=== PATIENT | female | born 1960 | race Caucasian/White ===

== ENCOUNTER 2022-06-04 10:49 | Inpatient (IN) | payer BC ==
[~2022-06-04] VITALS: Ht 162.6 cm; Wt 86.6 kg
[2022-06-04] MEDS ORDERED: SODIUM CHLORIDE FLUSH 10 ML SYR IV PRN (11:30)
[2022-06-04 11:42] LABS: BASOPHILS % 0.2 % (0.0-1.0); EOSINOPHILS % 0.2 % (0.0-6.0); HEMATOCRIT 23.7 % (34.2-44.1); HEMOGLOBIN 7.7 g/dL (12.0-16.0); LYMPHOCYTES # (AUTO) 1.8 (1.0-3.2); LYMPHOCYTES % 10.9 % (18.0-39.1); MEAN CORPUSCULAR HGB CONC 32.5 g/dL (31-35); MEAN CORPUSCULAR VOLUME 73.8 fL (81-99); MONOCYTES # (AUTO) 0.9 (0.2-0.8); MONOCYTES % 5.4 % (4.4-11.3); NEUTROPHILS # (AUTO) 13.3 (2.1-6.9); NEUTROPHILS % 81.6 % (38.7-80.0); PLATELET COUNT 477 x10e3/uL (140-360); RED BLOOD COUNT 3.21 x10e6/uL (3.6-5.1); RED CELL DISTRIBUTION WIDTH 19.2 % (11.7-14.4)
[2022-06-04 12:03] LABS: ALBUMIN 2.2 g/dL (3.5-5.0); ALBUMIN/GLOBULIN RATIO 0.4 (0.8-2.0); ANION GAP 28.4 mmol/L (8-16); CALCIUM 8.8 mg/dL (8.4-10.2); CREATININE, SERUM 6.83 mg/dL (0.57-1.11)
[2022-06-04 12:05] LABS: POTASSIUM 5.4 mmol/L (3.5-5.1)
[2022-06-04] MEDS ORDERED: METOPROLOL SUC200 MG PO (13:36)
[2022-06-04] MEDS ORDERED: LISINOPRIL-HCT1 EAC1 PO (13:36)
[2022-06-04] MEDS ORDERED: LEVEMIR100 UNIT/1 SQ (13:36)
[2022-06-04] MEDS ORDERED: ASPIRIN325 MG PO (13:39)
[2022-06-04] MEDS ORDERED: PANTOPRAZOLE SO20 MG PO (13:39)
[2022-06-04] MEDS ORDERED: DEXTROSE 50% SYRINGE 50 ML IV STA (15:12)
[2022-06-04] MEDS ORDERED: SODIUM BICARBONATE 8.4% INJ 50 ML SYR IV STA ×2 (15:12→20:52)
[2022-06-04] MEDS ORDERED: CALCIUM CHLORIDE 10% 1.36 MEQ/ML 10ML SYR IV STA (15:12)
[2022-06-04] MEDS ORDERED: LACTULOSE SYRUP 20 GM/30 ML UDC PO PRN (15:15)
[2022-06-04] MEDS ORDERED: SODIUM CHLORIDE 0.9% 1000ML 1,000 ML IV ONE (15:15)
[2022-06-04] MEDS ORDERED: INSULIN REGULAR, HUMAN 100 UNIT/1 ML SQ ONE (16:00)
[2022-06-04] MEDS ORDERED: FUROSEMIDE INJ 10 MG/ML 4 ML VIAL IV ONE (16:00)
[2022-06-04] MEDS ORDERED: CALCIUM CHLORIDE 10% 1.36 MEQ/ML 10ML SYR IV ONE (16:00)
[2022-06-04 16:28] LABS: CLARITY,URINE TURBID (CLEAR); COLOR,URINE STRAW (YELLOW); KETONES,URINE NEGATIVE (NEGATIVE); LEUKOCYTE ESTERASE ,URINE LARGE (NEGATIVE); NITRITE,URINE NEGATIVE (NEGATIVE); PROTEIN,URINE DIPSTICK >=300 (NEGATIVE); URINE UROBILINOGEN 0.2 mg/dL (0.2 - 1)
[2022-06-04 16:38] LABS: BACTERIA,URINE MANY /HPF
[2022-06-04] MEDS ORDERED: ATORVASTATIN CA80 MG PO (17:55)
[2022-06-04] MEDS ORDERED: OZEMPIC1 MG/0.71 SQ (17:55)
[2022-06-04] MEDS ORDERED: AMLODIPINE BESY10 MG PO (17:55)
[2022-06-04] MEDS ORDERED: CLOPIDOGREL75 MG PO (17:55)
[2022-06-04 17:56] VITALS: BP 135/59
[2022-06-04 17:58] VITALS: BP 135/59
[2022-06-04 18:12] VITALS: BP 135/55
[2022-06-04 20:00] VITALS: BP 135/55
[2022-06-04] MEDS ORDERED: SODIUM CHLORIDE 0.9% 1000ML 1,000 ML IV SCH ×2 (20:00→23:54)
[2022-06-04] MEDS ORDERED: SODIUM CHLORIDE 0.9% 1000ML 1,000 ML ONE (20:04)
[2022-06-04 20:45] VITALS: BP 125/57
[2022-06-04] MEDS ORDERED: NON-FORMULARY MEDICATION (Insulin Detemir (Levemir) 25 UNITS) SQ PRN (20:45)
[2022-06-04] MEDS: ATORVASTATIN 40 MG TAB PO SCH (21:06)
[2022-06-04] MEDS ORDERED: GEMFIBROZIL600 MG PO (21:12)
[2022-06-04] MEDS: GEMFIBROZIL 600 MG TAB PO SCH (21:46)
[2022-06-04 23:51] VITALS: BP 136/72
[2022-06-05] VITALS (7 sets, daily range): BP systolic 128–133; BP diastolic 43–65
[2022-06-05 04:58] LABS: BASOPHILS % 0.2 % (0.0-1.0); EOSINOPHILS % 0.1 % (0.0-6.0); HEMATOCRIT 21.9 % (34.2-44.1); HEMOGLOBIN 7.2 g/dL (12.0-16.0); LYMPHOCYTES # (AUTO) 0.9 (1.0-3.2); LYMPHOCYTES % 5.4 % (18.0-39.1); MEAN CORPUSCULAR HEMOGLOBIN 23.9 pg (28-32); MEAN CORPUSCULAR HGB CONC 32.9 g/dL (31-35); MEAN CORPUSCULAR VOLUME 72.8 fL (81-99); MONOCYTES # (AUTO) 1.2 (0.2-0.8); MONOCYTES % 6.8 % (4.4-11.3); NEUTROPHILS # (AUTO) 14.8 (2.1-6.9); NEUTROPHILS % 86.2 % (38.7-80.0); PLATELET COUNT 424 x10e3/uL (140-360); RED BLOOD COUNT 3.01 x10e6/uL (3.6-5.1); RED CELL DISTRIBUTION WIDTH 19.4 % (11.7-14.4)
[2022-06-05 05:19] LABS: ANION GAP 26.7 mmol/L (8-16); CALCIUM 8.3 mg/dL (8.4-10.2); CREATININE, SERUM 7.06 mg/dL (0.57-1.11); POTASSIUM 4.7 mmol/L (3.5-5.1)
[2022-06-05] MEDS: CLOPIDOGREL BISULFATE 75 MG TAB PO SCH (08:38)
[2022-06-05] MEDS: AMLODIPINE BESYLATE 10 MG TAB PO SCH (08:39)
[2022-06-05] MEDS: ASPIRIN 325 MG TAB PO SCH (08:39)
[2022-06-05] MEDS: PANTOPRAZOLE SOD 40 MG TABEC PO SCH (08:39)
[2022-06-05] MEDS ORDERED: GEMFIBROZIL 600 MG TAB PO SCH (09:00)
[2022-06-05] MEDS ORDERED: NON-FORMULARY MEDICATION (Metoprolol Succinate 1 TAB) PO SCH (09:00)
[2022-06-05] MEDS ORDERED: DEXTROSE 50% SYRINGE 50 ML IV PRN (09:15)
[2022-06-05] MEDS: INSULIN LISPRO 100 UNIT/1 ML 3ML VIAL SQ SCH ×3 (11:30→21:00)
[2022-06-05] MEDS: GEMFIBROZIL 600 MG TAB PO SCH ×2 (11:47→16:32)
[2022-06-05] MEDS ORDERED: SODIUM BICARBONATE 8.4% 150 ML in DEXTROSE 5% 1,000 ML IV ONE (15:00)
[2022-06-05] MEDS ORDERED: Vancomycin IV 1 GM in SODIUM CHLORIDE 0.9% 250ML 250 ML IV ONE ×2 (15:00→18:00)
[2022-06-05 15:20] LABS: % IRON SATURATION 8 % (15-50); IRON 20 ug/dL (50-170); TOTAL IRON BINDING CAPACITY 242 ug/dL (261-478); TRANSFERRIN 173 mg/dL (180-382)
[2022-06-05] MEDS ORDERED: HEPARIN SOD (PORCINE) 1000 UNIT/ML SDV ONE ×3 (15:55→22:24)
[2022-06-05 18:37] LABS: CLARITY,URINE SL CLOUDY (CLEAR); COLOR,URINE STRAW (YELLOW); KETONES,URINE NEGATIVE (NEGATIVE); LEUKOCYTE ESTERASE ,URINE LARGE (NEGATIVE); NITRITE,URINE NEGATIVE (NEGATIVE); PROTEIN,URINE DIPSTICK 2+ (NEGATIVE); URINE UROBILINOGEN 0.2 mg/dL (0.2 - 1)
[2022-06-05 18:46] LABS: AMORPHOUS SEDIMENT,URINE MODERATE (FEW); BACTERIA,URINE MANY /HPF; WBC,URINE (MAN) >50 /HPF (0-5)
[2022-06-05 19:31] LABS: CREATININE,URINE RANDOM 59.44 mg/dL (47-110)
[2022-06-05] MEDS ORDERED: SODIUM CHLORIDE 0.9% 1000ML 2,000 ML ONE (19:49)
[2022-06-05] MEDS ORDERED: MANNITOL 25% 12.5GM/50ML 100 ML ONE (20:13)
[2022-06-05] MEDS: ATORVASTATIN 40 MG TAB PO SCH (21:43)
[2022-06-06] VITALS (7 sets, daily range): BP systolic 97–145; BP diastolic 55–79
[2022-06-06 06:15] LABS: ALBUMIN 1.7 g/dL (3.5-5.0); ALBUMIN/GLOBULIN RATIO 0.4 (0.8-2.0); ANION GAP 24.4 mmol/L (8-16); CALCIUM 8.3 mg/dL (8.4-10.2); CREATININE, SERUM 4.81 mg/dL (0.57-1.11); POTASSIUM 4.4 mmol/L (3.5-5.1)
[2022-06-06] MEDS ORDERED: MANNITOL 25% 12.5GM/50 ML VIAL IV PRN (07:00)
[2022-06-06] MEDS ORDERED: HEPARIN SOD (PORCINE) 1000 UNIT/ML SDV IV PRN (07:00)
[2022-06-06] MEDS ORDERED: SODIUM CHLORIDE 0.9% 1000ML 2,000 ML IV PRN (07:00)
[2022-06-06] MEDS: INSULIN LISPRO 100 UNIT/1 ML 3ML VIAL SQ SCH ×5 (08:30→21:00)
[2022-06-06] MEDS: ASPIRIN 325 MG TAB PO SCH (08:33)
[2022-06-06] MEDS: CLOPIDOGREL BISULFATE 75 MG TAB PO SCH (08:34)
[2022-06-06] MEDS: AMLODIPINE BESYLATE 10 MG TAB PO SCH (08:34)
[2022-06-06] MEDS: PANTOPRAZOLE SOD 40 MG TABEC PO SCH (08:34)
[2022-06-06] MEDS: GEMFIBROZIL 600 MG TAB PO SCH ×2 (08:34→16:21)
[2022-06-06] MEDS ORDERED: SODIUM CHLORIDE 0.9% 1000ML 1,000 ML ONE (12:02)
[2022-06-06] MEDS: IRON SUCROSE 100 MG in SODIUM CHLORIDE 0.9% 100 ML IV SCH (14:52)
[2022-06-06] MEDS: SODIUM CHLORIDE 0.9% 1000ML 1,000 ML IV SCH (14:54)
[2022-06-06] MEDS: CHOLESTYRAMINE 4 GM PACKET PO SCH ×2 (16:20→22:03)
[2022-06-06] MEDS: ATORVASTATIN 40 MG TAB PO SCH (21:08)
[2022-06-06] MEDS ORDERED: CYANOCOBALAMIN INJ 1,000 MCG/ML VIAL IM ONE (23:45)
[2022-06-07] VITALS (8 sets, daily range): BP systolic 110–156; BP diastolic 51–70
[2022-06-07] MEDS: ALBUTEROL/IPRATROPIUM 3 ML NEB NEB SCH ×4 (00:40→19:25)
[2022-06-07] MEDS: SODIUM CHLORIDE 0.9% 1000ML 1,000 ML IV SCH ×2 (01:44→17:19)
[2022-06-07] MEDS: INSULIN LISPRO 100 UNIT/1 ML 3ML VIAL SQ SCH ×4 (07:30→21:13)
[2022-06-07] MEDS: CHOLESTYRAMINE 4 GM PACKET PO SCH ×3 (09:00→21:11)
[2022-06-07] MEDS: GEMFIBROZIL 600 MG TAB PO SCH ×2 (09:00→17:20)
[2022-06-07] MEDS: AMLODIPINE BESYLATE 10 MG TAB PO SCH ×2 (09:00→17:20)
[2022-06-07] MEDS: ASPIRIN 325 MG TAB PO SCH (15:01)
[2022-06-07] MEDS: PANTOPRAZOLE SOD 40 MG TABEC PO SCH (15:01)
[2022-06-07] MEDS: CLOPIDOGREL BISULFATE 75 MG TAB PO SCH (15:01)
[2022-06-07] MEDS: CYANOCOBALAMIN INJ 1,000 MCG/ML VIAL IM SCH (15:02)
[2022-06-07] MEDS: IRON SUCROSE 100 MG in SODIUM CHLORIDE 0.9% 100 ML IV SCH (15:03)
[2022-06-07] MEDS: ATORVASTATIN 40 MG TAB PO SCH (21:11)
[2022-06-08] VITALS: BP 135/53
[2022-06-08] MEDS: ALBUTEROL/IPRATROPIUM 3 ML NEB NEB SCH ×4 (00:05→19:30)
[2022-06-08 06:15] LABS: ANION GAP 15.5 mmol/L (8-16); CALCIUM 8.4 mg/dL (8.4-10.2); CREATININE, SERUM 2.5 mg/dL (0.57-1.11); POTASSIUM 3.5 mmol/L (3.5-5.1)
[2022-06-08] MEDS: SODIUM CHLORIDE 0.9% 1000ML 1,000 ML IV SCH ×2 (07:22→22:02)
[2022-06-08 07:28] VITALS: BP 143/48
[2022-06-08] MEDS: INSULIN LISPRO 100 UNIT/1 ML 3ML VIAL SQ SCH ×4 (07:30→22:00)
[2022-06-08] MEDS: PANTOPRAZOLE SOD 40 MG TABEC PO SCH (07:30)
[2022-06-08 08:29] LABS: BASOPHILS # (AUTO) 0.1 (0.0-0.1); BASOPHILS % 0.5 % (0.0-1.0); EOSINOPHILS # (AUTO) 0.3 (0.0-0.4); EOSINOPHILS % 2.1 % (0.0-6.0); LYMPHOCYTES % 15.5 % (18.0-39.1); MEAN CORPUSCULAR HEMOGLOBIN 24.1 pg (28-32); MEAN CORPUSCULAR HGB CONC 31.4 g/dL (31-35); MEAN CORPUSCULAR VOLUME 76.7 fL (81-99); MONOCYTES # (AUTO) 1.1 (0.2-0.8); MONOCYTES % 8.7 % (4.4-11.3); NEUTROPHILS # (AUTO) 9.1 (2.1-6.9); NEUTROPHILS % 70.4 % (38.7-80.0); PLATELET COUNT 290 x10e3/uL (140-360); RED BLOOD COUNT 2.66 x10e6/uL (3.6-5.1); RED CELL DISTRIBUTION WIDTH 20.4 % (11.7-14.4)
[2022-06-08 08:47] LABS: HEMATOCRIT 20.4 % (34.2-44.1); HEMOGLOBIN 6.4 g/dL (12.0-16.0)
[2022-06-08] MEDS: CHOLESTYRAMINE 4 GM PACKET PO SCH ×3 (09:00→22:02)
[2022-06-08] MEDS: GEMFIBROZIL 600 MG TAB PO SCH ×2 (09:00→17:52)
[2022-06-08] MEDS: CYANOCOBALAMIN INJ 1,000 MCG/ML VIAL IM SCH (09:00)
[2022-06-08] MEDS ORDERED: SODIUM CHLORIDE 0.9% 250ML 250 ML IV ONE (09:45)
[2022-06-08 11:28] VITALS: BP 137/57
[2022-06-08] MEDS ORDERED: PROPOFOL IV EMULSION 10 MG/ML 20 ML VIAL ONE (11:51)
[2022-06-08] MEDS ORDERED: LIDOCAINE HCL 2% LOCAL INJ 5 ML SDV VIAL INJ ONE (11:51)
[2022-06-08] MEDS ORDERED: POTASSIUM CHLORIDE 20MEQ/100ML 100 ML IV ONE (12:30)
[2022-06-08] MEDS: IRON SUCROSE 100 MG in SODIUM CHLORIDE 0.9% 100 ML IV SCH (14:00)
[2022-06-08] MEDS ORDERED: SODIUM CHLORIDE 0.9% 250ML 250 ML ONE (14:15)
[2022-06-08 15:13] LABS: ALPHA 2 GLOBULIN URINE PEP 20.3 % (.)
[2022-06-08 15:30] VITALS: BP 134/64
[2022-06-08 20:00] VITALS: BP 115/68
[2022-06-08 21:00] VITALS: BP 115/68
[2022-06-08] MEDS: ATORVASTATIN 40 MG TAB PO SCH (22:02)
[2022-06-09] VITALS (7 sets, daily range): BP systolic 117–196; BP diastolic 57–77
[2022-06-09] MEDS: ALBUTEROL/IPRATROPIUM 3 ML NEB NEB SCH ×4 (01:05→19:30)
[2022-06-09 05:41] LABS: BASOPHILS % 0.3 % (0.0-1.0); EOSINOPHILS # (AUTO) 0.4 (0.0-0.4); EOSINOPHILS % 3.1 % (0.0-6.0); HEMATOCRIT 23.3 % (34.2-44.1); HEMOGLOBIN 7.6 g/dL (12.0-16.0); LYMPHOCYTES # (AUTO) 1.9 (1.0-3.2); LYMPHOCYTES % 14.2 % (18.0-39.1); MEAN CORPUSCULAR HEMOGLOBIN 24.6 pg (28-32); MEAN CORPUSCULAR HGB CONC 32.6 g/dL (31-35); MEAN CORPUSCULAR VOLUME 75.4 fL (81-99); MONOCYTES % 7.8 % (4.4-11.3); NEUTROPHILS # (AUTO) 9.6 (2.1-6.9); PLATELET COUNT 262 x10e3/uL (140-360); RED BLOOD COUNT 3.09 x10e6/uL (3.6-5.1); RED CELL DISTRIBUTION WIDTH 18.7 % (11.7-14.4)
[2022-06-09 06:11] LABS: ALBUMIN 1.6 g/dL (3.5-5.0); ALBUMIN/GLOBULIN RATIO 0.4 (0.8-2.0); ANION GAP 14.4 mmol/L (8-16); CALCIUM 8.3 mg/dL (8.4-10.2); CREATININE, SERUM 3.57 mg/dL (0.57-1.11); POTASSIUM 3.4 mmol/L (3.5-5.1)
[2022-06-09] MEDS ORDERED: POTASSIUM CHLORIDE 20 MEQ TAB CR PO ONE (08:30)
[2022-06-09] MEDS: INSULIN LISPRO 100 UNIT/1 ML 3ML VIAL SQ SCH ×4 (08:55→21:00)
[2022-06-09] MEDS: AMLODIPINE BESYLATE 10 MG TAB PO SCH (09:01)
[2022-06-09] MEDS: PANTOPRAZOLE SOD 40 MG TABEC PO SCH (09:02)
[2022-06-09] MEDS: CHOLESTYRAMINE 4 GM PACKET PO SCH ×3 (09:02→21:25)
[2022-06-09] MEDS: GEMFIBROZIL 600 MG TAB PO SCH ×2 (09:02→16:40)
[2022-06-09] MEDS: CYANOCOBALAMIN INJ 1,000 MCG/ML VIAL IM SCH (09:02)
[2022-06-09] MEDS: SODIUM CHLORIDE 0.9% 1000ML 1,000 ML IV SCH (09:20)
[2022-06-09] MEDS: NIFEDIPINE CR 30 MG TAB PO SCH ×2 (10:23→21:23)
[2022-06-09] MEDS ORDERED: FENTANYL CITRATE/PF 100MCG/2 ML INJ ONE (12:39)
[2022-06-09] MEDS: IRON SUCROSE 100 MG in SODIUM CHLORIDE 0.9% 100 ML IV SCH (15:00)
[2022-06-09] MEDS: ATORVASTATIN 40 MG TAB PO SCH (21:22)
[2022-06-10] VITALS (7 sets, daily range): BP systolic 146–167; BP diastolic 65–89
[2022-06-10] MEDS: ALBUTEROL/IPRATROPIUM 3 ML NEB NEB SCH ×4 (00:50→18:40)
[2022-06-10] MEDS: SODIUM CHLORIDE 0.9% 1000ML 1,000 ML IV SCH ×2 (02:21→21:27)
[2022-06-10 06:15] LABS: BASOPHILS # (AUTO) 0.1 (0.0-0.1); BASOPHILS % 0.5 % (0.0-1.0); EOSINOPHILS # (AUTO) 0.4 (0.0-0.4); EOSINOPHILS % 2.1 % (0.0-6.0); HEMATOCRIT 25.3 % (34.2-44.1); HEMOGLOBIN 8.4 g/dL (12.0-16.0); LYMPHOCYTES # (AUTO) 1.8 (1.0-3.2); LYMPHOCYTES % 9.4 % (18.0-39.1); MEAN CORPUSCULAR HEMOGLOBIN 25.1 pg (28-32); MEAN CORPUSCULAR HGB CONC 33.2 g/dL (31-35); MEAN CORPUSCULAR VOLUME 75.5 fL (81-99); MONOCYTES % 5.1 % (4.4-11.3); NEUTROPHILS # (AUTO) 15.5 (2.1-6.9); NEUTROPHILS % 80.5 % (38.7-80.0); PLATELET COUNT 260 x10e3/uL (140-360); RED BLOOD COUNT 3.35 x10e6/uL (3.6-5.1); RED CELL DISTRIBUTION WIDTH 18.8 % (11.7-14.4)
[2022-06-10 06:48] LABS: ALBUMIN 1.6 g/dL (3.5-5.0); ALBUMIN/GLOBULIN RATIO 0.4 (0.8-2.0); ANION GAP 19.5 mmol/L (8-16); CALCIUM 8.3 mg/dL (8.4-10.2); CREATININE, SERUM 4.1 mg/dL (0.57-1.11); POTASSIUM 4.5 mmol/L (3.5-5.1)
[2022-06-10] MEDS: PANTOPRAZOLE SOD 40 MG TABEC PO SCH (07:30)
[2022-06-10] MEDS: INSULIN LISPRO 100 UNIT/1 ML 3ML VIAL SQ SCH ×4 (07:30→21:00)
[2022-06-10] MEDS: CYANOCOBALAMIN INJ 1,000 MCG/ML VIAL IM SCH (09:00)
[2022-06-10] MEDS ORDERED: NON-FORMULARY MEDICATION (Semaglutide (Ozempic) 1 MG) SQ SCH (09:00)
[2022-06-10] MEDS: NIFEDIPINE CR 30 MG TAB PO SCH ×2 (09:00→21:28)
[2022-06-10] MEDS: GEMFIBROZIL 600 MG TAB PO SCH (09:00)
[2022-06-10] MEDS: CHOLESTYRAMINE 4 GM PACKET PO SCH ×3 (09:00→22:53)
[2022-06-10] MEDS: IRON SUCROSE 100 MG in SODIUM CHLORIDE 0.9% 100 ML IV SCH (14:00)
[2022-06-10] MEDS ORDERED: HEPARIN SOD (PORCINE) 1000 UNIT/ML SDV IV PRN (16:00)
[2022-06-10] MEDS ORDERED: HYDRALAZINE HCL 10 MG TAB PO PRN (16:30)
[2022-06-10] MEDS: ATORVASTATIN 40 MG TAB PO SCH (21:27)
[2022-06-11] VITALS (7 sets, daily range): BP systolic 131–159; BP diastolic 48–68
[2022-06-11] MEDS: ALBUTEROL/IPRATROPIUM 3 ML NEB NEB SCH ×4 (00:30→19:25)
[2022-06-11 06:06] LABS: BASOPHILS # (AUTO) 0.1 (0.0-0.1); BASOPHILS % 0.3 % (0.0-1.0); EOSINOPHILS # (AUTO) 0.5 (0.0-0.4); EOSINOPHILS % 2.4 % (0.0-6.0); HEMATOCRIT 22.6 % (34.2-44.1); HEMOGLOBIN 7.4 g/dL (12.0-16.0); LYMPHOCYTES # (AUTO) 1.4 (1.0-3.2); LYMPHOCYTES % 7.1 % (18.0-39.1); MEAN CORPUSCULAR HEMOGLOBIN 24.7 pg (28-32); MEAN CORPUSCULAR HGB CONC 32.7 g/dL (31-35); MEAN CORPUSCULAR VOLUME 75.6 fL (81-99); MONOCYTES # (AUTO) 0.9 (0.2-0.8); MONOCYTES % 4.6 % (4.4-11.3); NEUTROPHILS # (AUTO) 16.6 (2.1-6.9); NEUTROPHILS % 83.5 % (38.7-80.0); PLATELET COUNT 241 x10e3/uL (140-360); RED BLOOD COUNT 2.99 x10e6/uL (3.6-5.1); RED CELL DISTRIBUTION WIDTH 18.8 % (11.7-14.4)
[2022-06-11] MEDS: CYANOCOBALAMIN INJ 1,000 MCG/ML VIAL IM SCH (08:52)
[2022-06-11] MEDS: PANTOPRAZOLE SOD 40 MG TABEC PO SCH (08:52)
[2022-06-11] MEDS: GEMFIBROZIL 600 MG TAB PO SCH ×3 (08:53→18:08)
[2022-06-11] MEDS: NIFEDIPINE CR 30 MG TAB PO SCH ×2 (08:53→20:41)
[2022-06-11] MEDS: CHOLESTYRAMINE 4 GM PACKET PO SCH ×3 (08:53→22:47)
[2022-06-11] MEDS: INSULIN LISPRO 100 UNIT/1 ML 3ML VIAL SQ SCH ×4 (08:55→20:46)
[2022-06-11] MEDS: ATORVASTATIN 40 MG TAB PO SCH (20:40)
[2022-06-11] MEDS: SODIUM CHLORIDE 0.9% 1000ML 1,000 ML IV SCH (20:41)
[2022-06-12] VITALS (8 sets, daily range): BP systolic 130–168; BP diastolic 54–72
[2022-06-12] MEDS: ALBUTEROL/IPRATROPIUM 3 ML NEB NEB SCH ×4 (00:40→19:23)
[2022-06-12 06:19] LABS: BASOPHILS # (AUTO) 0.1 (0.0-0.1); BASOPHILS % 0.3 % (0.0-1.0); EOSINOPHILS # (AUTO) 0.6 (0.0-0.4); HEMOGLOBIN 7.2 g/dL (12.0-16.0); LYMPHOCYTES # (AUTO) 1.9 (1.0-3.2); LYMPHOCYTES % 9.5 % (18.0-39.1); MEAN CORPUSCULAR HEMOGLOBIN 24.7 pg (28-32); MEAN CORPUSCULAR HGB CONC 31.6 g/dL (31-35); MEAN CORPUSCULAR VOLUME 78.1 fL (81-99); MONOCYTES # (AUTO) 1.1 (0.2-0.8); MONOCYTES % 5.4 % (4.4-11.3); NEUTROPHILS # (AUTO) 15.8 (2.1-6.9); NEUTROPHILS % 79.8 % (38.7-80.0); PLATELET COUNT 246 x10e3/uL (140-360); RED BLOOD COUNT 2.92 x10e6/uL (3.6-5.1); RED CELL DISTRIBUTION WIDTH 19.4 % (11.7-14.4)
[2022-06-12 06:42] LABS: ANION GAP 18.2 mmol/L (8-16); CALCIUM 8.2 mg/dL (8.4-10.2); CREATININE, SERUM 3.5 mg/dL (0.57-1.11); POTASSIUM 4.2 mmol/L (3.5-5.1)
[2022-06-12 06:50] LABS: HEMATOCRIT 22.8 % (34.2-44.1)
[2022-06-12] MEDS: INSULIN LISPRO 100 UNIT/1 ML 3ML VIAL SQ SCH ×4 (07:30→21:37)
[2022-06-12] MEDS: CHOLESTYRAMINE 4 GM PACKET PO SCH ×3 (08:39→23:02)
[2022-06-12] MEDS: NIFEDIPINE CR 30 MG TAB PO SCH ×2 (08:39→21:34)
[2022-06-12] MEDS: GEMFIBROZIL 600 MG TAB PO SCH ×2 (08:40→16:59)
[2022-06-12] MEDS: PANTOPRAZOLE SOD 40 MG TABEC PO SCH (08:40)
[2022-06-12] MEDS: CYANOCOBALAMIN INJ 1,000 MCG/ML VIAL IM SCH (08:40)
[2022-06-12] MEDS: SODIUM CHLORIDE 0.9% 1000ML 1,000 ML IV SCH (11:30)
[2022-06-12 16:06] LABS: INR 1.46; PROTHROMBIN TIME 18.9 seconds (11.9-14.5)
[2022-06-12 16:52] LABS: AMYLASE 61 U/L (25-125); LIPASE 105 U/L (8-78)
[2022-06-12] MEDS ORDERED: IOPAMIDOL 370 MG/ML 100 ML INFUS..BTL INJ ONE (19:55)
[2022-06-12] MEDS: ATORVASTATIN 40 MG TAB PO SCH (21:33)
[2022-06-13] VITALS (7 sets, daily range): BP systolic 130–161; BP diastolic 61–68
[2022-06-13] MEDS: ALBUTEROL/IPRATROPIUM 3 ML NEB NEB SCH ×4 (00:48→19:58)
[2022-06-13] MEDS: SODIUM CHLORIDE 0.9% 1000ML 1,000 ML IV SCH ×2 (01:48→16:35)
[2022-06-13 06:18] LABS: BASOPHILS # (AUTO) 0.1 (0.0-0.1); BASOPHILS % 0.3 % (0.0-1.0); EOSINOPHILS # (AUTO) 0.6 (0.0-0.4); EOSINOPHILS % 3.1 % (0.0-6.0); HEMATOCRIT 25.7 % (34.2-44.1); HEMOGLOBIN 8.1 g/dL (12.0-16.0); LYMPHOCYTES # (AUTO) 2.2 (1.0-3.2); LYMPHOCYTES % 11.6 % (18.0-39.1); MEAN CORPUSCULAR HGB CONC 31.5 g/dL (31-35); MEAN CORPUSCULAR VOLUME 79.3 fL (81-99); MONOCYTES # (AUTO) 0.8 (0.2-0.8); MONOCYTES % 4.1 % (4.4-11.3); NEUTROPHILS # (AUTO) 14.9 (2.1-6.9); NEUTROPHILS % 78.4 % (38.7-80.0); PLATELET COUNT 326 x10e3/uL (140-360); RED BLOOD COUNT 3.24 x10e6/uL (3.6-5.1); RED CELL DISTRIBUTION WIDTH 19.8 % (11.7-14.4)
[2022-06-13 06:41] LABS: ALBUMIN/GLOBULIN RATIO 0.5 (0.8-2.0); ANION GAP 21.5 mmol/L (8-16); CALCIUM 8.4 mg/dL (8.4-10.2); CREATININE, SERUM 3.66 mg/dL (0.57-1.11); POTASSIUM 4.5 mmol/L (3.5-5.1)
[2022-06-13] MEDS: INSULIN LISPRO 100 UNIT/1 ML 3ML VIAL SQ SCH ×4 (08:29→20:19)
[2022-06-13] MEDS: PANTOPRAZOLE SOD 40 MG TABEC PO SCH (08:44)
[2022-06-13] MEDS: CYANOCOBALAMIN INJ 1,000 MCG/ML VIAL IM SCH (08:44)
[2022-06-13] MEDS: GEMFIBROZIL 600 MG TAB PO SCH ×2 (08:44→17:00)
[2022-06-13] MEDS: CHOLESTYRAMINE 4 GM PACKET PO SCH ×3 (08:44→22:16)
[2022-06-13] MEDS: NIFEDIPINE CR 30 MG TAB PO SCH ×2 (08:45→20:57)
[2022-06-13] MEDS ORDERED: HEPARIN SOD (PORCINE) 1000 UNIT/ML SDV ONE (10:30)
[2022-06-13] MEDS ORDERED: FENTANYL CITRATE/PF 100MCG/2 ML INJ ONE (10:30)
[2022-06-13] MEDS ORDERED: SODIUM CHLORIDE 0.9% 250ML 250 ML ONE (10:31)
[2022-06-13] MEDS ORDERED: Clindamycin INJ 600 MG 600 MG in DEXTROSE 5% 50ML 50 ML IV ONE (11:00)
[2022-06-13] MEDS: ATORVASTATIN 40 MG TAB PO SCH (20:56)
[2022-06-14] MEDS: ALBUTEROL/IPRATROPIUM 3 ML NEB NEB SCH ×3 (01:05→12:45)
[2022-06-14 02:05] VITALS: BP 175/63
[2022-06-14 05:53] LABS: HEMOGLOBIN 7.1 g/dL (12.0-16.0); RED BLOOD COUNT 2.82 x10e6/uL (3.6-5.1)
[2022-06-14 05:54] LABS: BASOPHILS % 0.1 % (0.0-1.0); EOSINOPHILS # (AUTO) 0.5 (0.0-0.4); EOSINOPHILS % 3.8 % (0.0-6.0); HEMATOCRIT 22.1 % (34.2-44.1); LYMPHOCYTES # (AUTO) 1.6 (1.0-3.2); LYMPHOCYTES % 11.6 % (18.0-39.1); MEAN CORPUSCULAR HEMOGLOBIN 25.2 pg (28-32); MEAN CORPUSCULAR HGB CONC 32.1 g/dL (31-35); MEAN CORPUSCULAR VOLUME 78.4 fL (81-99); MONOCYTES # (AUTO) 0.9 (0.2-0.8); MONOCYTES % 6.2 % (4.4-11.3); NEUTROPHILS # (AUTO) 10.3 (2.1-6.9); NEUTROPHILS % 74.9 % (38.7-80.0); PLATELET COUNT 312 x10e3/uL (140-360)
[2022-06-14 06:06] VITALS: BP 144/68
[2022-06-14 06:23] LABS: ALBUMIN 1.9 g/dL (3.5-5.0); ALBUMIN/GLOBULIN RATIO 0.6 (0.8-2.0); ANION GAP 20.9 mmol/L (8-16); CREATININE, SERUM 2.36 mg/dL (0.57-1.11); POTASSIUM 3.9 mmol/L (3.5-5.1)
[2022-06-14] MEDS: SODIUM CHLORIDE 0.9% 1000ML 1,000 ML IV SCH (06:24)
[2022-06-14] MEDS: INSULIN LISPRO 100 UNIT/1 ML 3ML VIAL SQ SCH ×3 (07:30→16:54)
[2022-06-14 08:31] VITALS: BP 144/68
[2022-06-14 08:40] VITALS: BP 123/48
[2022-06-14] MEDS: GEMFIBROZIL 600 MG TAB PO SCH ×2 (08:56→16:57)
[2022-06-14] MEDS: CYANOCOBALAMIN INJ 1,000 MCG/ML VIAL IM SCH (08:56)
[2022-06-14] MEDS: PANTOPRAZOLE SOD 40 MG TABEC PO SCH (08:56)
[2022-06-14] MEDS: NIFEDIPINE CR 30 MG TAB PO SCH (08:59)
[2022-06-14] MEDS: CHOLESTYRAMINE 4 GM PACKET PO SCH ×2 (09:00→15:00)
[2022-06-14] MEDS ORDERED: SODIUM CHLORIDE 0.9% 250ML 250 ML IV ONE (09:30)
[2022-06-14 12:18] VITALS: BP 142/62
[2022-06-14] MEDS ORDERED: SODIUM CHLORIDE 0.9% 250ML 250 ML ONE (13:45)
[2022-06-14] MEDS ORDERED: GEMFIBROZIL600 MG PO (14:23)
[2022-06-14] MEDS ORDERED: NIFEDIPINE ER30 M1 PO (14:23)
[2022-06-14] MEDS ORDERED: CHOLESTYRAMINE L4 GM PO (14:23)
[2022-06-14] MEDS ORDERED: HYDRALAZINE HCL10 MG PO (14:23)
[2022-06-14] MEDS ORDERED: Insulin Lispro SQ (15:28)
[2022-06-14 16:35] VITALS: BP 126/52
== END 2022-06-14 18:15 | disposition home or self-care (01) | DRG 673 ==
LOC: ER 11:21 → ERHOLD 15:21 → MED/SURG2 17:39
PROVIDERS: ADMIT Internal Medicine; ATTEND Internal Medicine
PROC: 5A1D70Z Performance of Urinary Filtration, Intermittent, Less than 6 Hours Per Day (ICD-10-PCS; principal; 2022-06-05)
PROC: 02HV33Z Insertion of Infusion Device into Superior Vena Cava, Percutaneous Approach (ICD-10-PCS; 2022-06-05)
PROC: 0DB68ZZ Excision of Stomach, Via Natural or Artificial Opening Endoscopic (ICD-10-PCS; 2022-06-08)
PROC: 0DB78ZX Excision of Stomach, Pylorus, Via Natural or Artificial Opening Endoscopic, Diagnostic (ICD-10-PCS; 2022-06-08)
PROC: 30243N1 Transfusion of Nonautologous Red Blood Cells into Central Vein, Percutaneous Approach (ICD-10-PCS; 2022-06-08)
PROC: 0JH63XZ Insertion of Tunneled Vascular Access Device into Chest Subcutaneous Tissue and Fascia, Percutaneous Approach (ICD-10-PCS; 2022-06-13)
PROC: 02HV33Z Insertion of Infusion Device into Superior Vena Cava, Percutaneous Approach (ICD-10-PCS; 2022-06-13)
DX: I13.11 Hypertensive heart and chronic kidney disease without heart failure, with stage 5 chronic kidney disease, or end stage renal disease (principal); J18.9 Pneumonia, unspecified organism; N17.0 Acute kidney failure with tubular necrosis; K29.71 Gastritis, unspecified, with bleeding; N18.6 End stage renal disease; E87.2 Acidosis; N39.0 Urinary tract infection, site not specified; E11.22 Type 2 diabetes mellitus with diabetic chronic kidney disease; Z99.2 Dependence on renal dialysis; E87.5 Hyperkalemia; K31.7 Polyp of stomach and duodenum; D50.8 Other iron deficiency anemias; Z74.09 Other reduced mobility; E66.09 Other obesity due to excess calories; Z68.32 Body mass index [BMI] 32.0-32.9, adult; I69.398 Other sequelae of cerebral infarction; R26.89 Other abnormalities of gait and mobility; Z79.899 Other long term (current) drug therapy; E86.0 Dehydration; E78.5 Hyperlipidemia, unspecified; E11.69 Type 2 diabetes mellitus with other specified complication; K20.90 Esophagitis, unspecified without bleeding; D63.1 Anemia in chronic kidney disease
CPT/HCPCS: 36415; 36556; 36558; 43239; 51700; 70450; 71045; 74177; 74470; 76770; 76937; 77001; 80048; 80053; 81001; 82150; 82270; 82570; 82607; 82728; 82746; 82948; 83036; 83540; 83690; 83880; 84132; 84156; 84166; 84466; 84484; 85025; 85379; 85610; 86021; 86335; 86704; 86706; 86850; 86900; 86920; 87040; 87045; 87086; 87340; 88304; 88305; 88312; 88342; 93005; 94640; 94760; 94799; 96361; 99284; C1752; C1769; C1892; J0696; J1644; J1756; J1817; J1940; J2001; J2150; J3010; J3370; J3420; J7030; J7050; J7070; J7799; P9016; Q9967

== ENCOUNTER 2023-12-05 18:10 | Inpatient (IN) | payer BC, MEDICARE ==
[~2023-12-05] VITALS: Ht 165.1 cm; Wt 90.3 kg
[~2023-12-05 18:10] MED LIST: AMLODIPINE BESY10 MG PO; ASPIRIN325 MG PO; ATORVASTATIN CA80 MG PO; CHOLESTYRAMINE L4 GM PO; CLOPIDOGREL75 MG PO; GEMFIBROZIL600 MG PO; HYDRALAZINE HCL10 MG PO; Insulin Lispro SQ; LEVEMIR100 UNIT/1 SQ; LISINOPRIL-HCT1 EAC1 PO; METOPROLOL SUC200 MG PO; NIFEDIPINE ER30 M1 PO; OZEMPIC1 MG/0.71 SQ; PANTOPRAZOLE SO20 MG PO
[2023-12-05 18:50] LABS: BASOPHILS % 0.4 % (0.0-1.0); EOSINOPHILS # (AUTO) 0.2 (0.0-0.4); EOSINOPHILS % 1.6 % (0.0-6.0); HEMATOCRIT 30.4 % (34.2-44.1); HEMOGLOBIN 9.4 g/dL (12.0-16.0); LYMPHOCYTES # (AUTO) 1.6 (1.0-3.2); LYMPHOCYTES % 16.4 % (18.0-39.1); MEAN CORPUSCULAR HEMOGLOBIN 30.4 pg (28-32); MEAN CORPUSCULAR HGB CONC 30.9 g/dL (31-35); MEAN CORPUSCULAR VOLUME 98.4 fL (81-99); MONOCYTES # (AUTO) 0.7 (0.2-0.8); MONOCYTES % 6.9 % (4.4-11.3); NEUTROPHILS # (AUTO) 7.2 (2.1-6.9); PLATELET COUNT 333 x10e3/uL (140-360); RED BLOOD COUNT 3.09 x10e6/uL (3.6-5.1); RED CELL DISTRIBUTION WIDTH 14.5 % (11.7-14.4); WHITE BLOOD COUNT 9.77 x10e3/uL (4.8-10.8)
[2023-12-05 19:00] LABS: INR 1.23; PROTHROMBIN TIME 15.8 seconds (11.9-14.5)
[2023-12-05 19:01] LABS: PARTIAL THROMBOPLASTIN TIME 36.3 seconds (23.8-35.5)
[2023-12-05 19:09] LABS: ALBUMIN 3.3 g/dL (3.5-5.0); ALBUMIN/GLOBULIN RATIO 0.8 (0.8-2.0); ANION GAP 20.9 mmol/L (8-16); BILIRUBIN,TOTAL 0.3 mg/dL (0.2-1.2); CREATININE, SERUM 3.29 mg/dL (0.57-1.11); POTASSIUM 3.9 mmol/L (3.5-5.1); TOTAL PROTEIN 7.6 g/dL (6.5-8.1)
[2023-12-05 19:12] LABS: CALCIUM 5.4 mg/dL (8.4-10.2)
[2023-12-05 19:16] LABS: TROPONIN I 0.043 ng/mL (0-0.300)
[2023-12-05] MEDS: CALCIUM GLUC 1 G/50 ML NACL 150 ML IV ONE (20:24)
[2023-12-05] MEDS: SODIUM CHLORIDE 0.9% 500ML 300 ML IV STA (20:27)
[2023-12-05 22:30] VITALS: BP 174/69; PULSE 92; RESP 18; TEMP 97.8; O2SAT 94
[2023-12-05 22:34] VITALS: PULSE 85; RESP 16; RESP 24; O2SAT 94; O2SAT 98
[2023-12-05] MEDS ORDERED: FUROSEMIDE40 MG PO (22:51)
[2023-12-05] MEDS ORDERED: LASIX20 MG PO (22:51)
[2023-12-05] MEDS ORDERED: SODIUM BICARBO650 MG PO (22:51)
[2023-12-05] MEDS ORDERED: FEROSUL325 MG PO (22:51)
[2023-12-06] VITALS (52 sets, daily range): BP systolic 88–193; BP diastolic 58–178; PULSE 88–107; RESP 16–35; TEMP 97.5–98.4; O2SAT 93–100
[2023-12-06] MEDS ORDERED: ONDANSETRON HCL INJ 2MG/ML 2ML 2 MG/ML VIAL IV PRN (00:45)
[2023-12-06] MEDS ORDERED: DEXTROSE 50% SYRINGE 50 ML IV PRN (00:45)
[2023-12-06] MEDS ORDERED: MELATONIN 3 MG TAB PO PRN (00:45)
[2023-12-06] MEDS ORDERED: GUAIFENESIN/DEXTROMETHORPHAN LIQD 5 ML UDC PO PRN (00:45)
[2023-12-06] MEDS: FUROSEMIDE INJ 10 MG/ML 4 ML VIAL IV ONE (00:52)
[2023-12-06] MEDS: IPRATROPIUM BROMIDE 0.02% 2.5 ML NEB NEB SCH (00:57)
[2023-12-06] MEDS: ALBUTEROL SULF 0.083% NEB SOLN 3 ML NEB NEB PRN (00:58)
[2023-12-06] MEDS: Vancomycin IV 1 GM in SODIUM CHLORIDE 0.9% 250ML 250 ML IV ONE ×2 (01:22→12:51)
[2023-12-06 01:49] LABS: ABG PCO2 20 mmHg (35-45); ABG PH 7.41 (7.35-7.45)
[2023-12-06 01:50] LABS: ABG HCO3 13 mmol/L (22-26); ABG PO2 46 mmHg (80-105); ABG TCO2 13
[2023-12-06] MEDS: NIFEDIPINE CR 30 MG TAB PO ONE (01:53)
[2023-12-06] MEDS ORDERED: IPRATROPIUM BROMIDE 0.02% 2.5 ML NEB NEB SCH (03:00)
[2023-12-06] MEDS: SODIUM BICARBONATE 8.4% INJ 50 ML SYR IV STA (03:09)
[2023-12-06] MEDS: LACTATED RINGER'S 400 ML IV ONE (03:09)
[2023-12-06] MEDS: CALCIUM GLUC 1 G/50 ML NACL 50 ML IV ONE ×2 (03:09→12:50)
[2023-12-06] MEDS: HYDRALAZINE HCL 20 MG/ML VIAL IV PRN (03:23)
[2023-12-06] MEDS: NIFEDIPINE CR 30 MG TAB PO SCH (03:53)
[2023-12-06 06:27] LABS: BASOPHILS % 0.1 % (0.0-1.0); EOSINOPHILS % 0.2 % (0.0-6.0); HEMATOCRIT 28.3 % (34.2-44.1); HEMOGLOBIN 9.4 g/dL (12.0-16.0); LYMPHOCYTES # (AUTO) 0.8 (1.0-3.2); LYMPHOCYTES % 7.5 % (18.0-39.1); MEAN CORPUSCULAR HEMOGLOBIN 31.3 pg (28-32); MEAN CORPUSCULAR HGB CONC 33.2 g/dL (31-35); MEAN CORPUSCULAR VOLUME 94.3 fL (81-99); MONOCYTES # (AUTO) 0.4 (0.2-0.8); MONOCYTES % 4.1 % (4.4-11.3); NEUTROPHILS # (AUTO) 8.9 (2.1-6.9); NEUTROPHILS % 87.4 % (38.7-80.0); PLATELET COUNT 312 x10e3/uL (140-360); RED CELL DISTRIBUTION WIDTH 14.5 % (11.7-14.4); WHITE BLOOD COUNT 10.18 x10e3/uL (4.8-10.8)
[2023-12-06 06:42] LABS: ANION GAP 21.7 mmol/L (8-16); CREATININE, SERUM 3.17 mg/dL (0.57-1.11); POTASSIUM 3.7 mmol/L (3.5-5.1)
[2023-12-06 06:49] LABS: CALCIUM 6.1 mg/dL (8.4-10.2)
[2023-12-06 07:25] LABS: THYROID STIMULATING HORMONE 2.107 uIU/mL (0.350-4.940)
[2023-12-06] MEDS: INSULIN REGULAR, HUMAN 100 UNIT/1 ML SQ SCH (07:30)
[2023-12-06] MEDS: ASPIRIN 325 MG TAB PO SCH (08:14)
[2023-12-06] MEDS: CLOPIDOGREL BISULFATE 75 MG TAB PO SCH (08:14)
[2023-12-06] MEDS: SODIUM BICARBONATE 650 MG TAB PO SCH (08:14)
[2023-12-06] MEDS: FOLIC ACID/CYANOCOB/PYRIDOXINE TAB PO SCH (08:14)
[2023-12-06] MEDS: BUMETANIDE INJ 0.25MG/ML 4ML VIAL IV SCH (12:50)
[2023-12-06] MEDS: SODIUM BICARBONATE 8.4% 150 ML in DEXTROSE 5% 1,000 ML IV SCH (12:57)
[2023-12-06 14:46] LABS: BILIRUBIN,URINE NEGATIVE (NEGATIVE); CLARITY,URINE HAZY (CLEAR); COLOR,URINE YELLOW (YELLOW); GLUCOSE, URINE 1+ (NEGATIVE); KETONES,URINE NEGATIVE (NEGATIVE); LEUKOCYTE ESTERASE ,URINE MODERATE (NEGATIVE); NITRITE,URINE POSITIVE (NEGATIVE); PH,URINE 6.5 (5 - 7); PROTEIN,URINE DIPSTICK >=300 (NEGATIVE); URINE UROBILINOGEN 0.2 mg/dL (0.2 - 1)
[2023-12-06 15:01] LABS: BACTERIA,URINE MODERATE /HPF; EPITHELIAL CELLS,URINE FEW /LPF; WBC,URINE (MAN) 21-50 /HPF (0-5)
[2023-12-06 15:06] LABS: FREE T4 (FREE THYROXINE) 1.03 ng/dL (0.8-1.8); THYROID STIMULATING HORMONE 1.649 uIU/mL (0.350-4.940)
[2023-12-06] MEDS: INSULIN REGULAR, HUMAN 3ML VL 100 UNIT in SODIUM CHLORIDE 0.9% 100 ML IV SCH (15:10)
[2023-12-06] MEDS: ATORVASTATIN 40 MG TAB PO SCH (20:39)
[2023-12-06] MEDS: HEPARIN SOD (PORCINE) 5,000 UNIT/ML VIAL SC SCH (20:40)
[2023-12-07] VITALS (33 sets, daily range): BP systolic 97–190; BP diastolic 52–129; PULSE 59–99; RESP 15–26; TEMP 98.2–98.5; O2SAT 95–100
[2023-12-07 06:50] LABS: ALBUMIN 2.7 g/dL (3.5-5.0); ALBUMIN/GLOBULIN RATIO 0.8 (0.8-2.0); ANION GAP 20.3 mmol/L (8-16); BILIRUBIN,TOTAL 0.5 mg/dL (0.2-1.2); CREATININE, SERUM 3.44 mg/dL (0.57-1.11); TOTAL PROTEIN 6.3 g/dL (6.5-8.1)
[2023-12-07 07:01] LABS: CALCIUM 5.3 mg/dL (8.4-10.2); POTASSIUM 3.3 mmol/L (3.5-5.1)
[2023-12-07] MEDS: POTASSIUM CHLORIDE 20MEQ/100ML 100 ML IV ONE (08:15)
[2023-12-07] MEDS: CALCIUM GLUC 1 G/50 ML NACL 50 ML IV ONE (08:15)
[2023-12-07 08:48] LABS: ABG PH 7.46 (7.35-7.45)
[2023-12-07 08:49] LABS: ABG HCO3 19 mmol/L (22-26); ABG PCO2 26 mmHg (35-45); ABG PO2 98 mmHg (80-105); ABG TCO2 20
[2023-12-07] MEDS: BUMETANIDE INJ 0.25MG/ML 4ML VIAL IV SCH (12:07)
[2023-12-07] MEDS: CALCITRIOL 0.25 MCG CAP PO SCH (12:07)
[2023-12-07 12:10] LABS: CALCIUM 5.6 mg/dL (8.7-10.3)
[2023-12-07] MEDS: CALCIUM CARBONATE 500 MG CHEWABLE TABS PO SCH (15:13)
[2023-12-07] MEDS: CALCIUM GLUCONATE 10% INJ 9.3 MEQ in SODIUM CHLORIDE 0.9% 250ML 250 ML IV ONE (15:34)
[2023-12-08] VITALS (33 sets, daily range): BP systolic 96–146; BP diastolic 48–126; PULSE 70–105; RESP 15–24; TEMP 98–98.5; O2SAT 93–100
[2023-12-08] MEDS: DEXTROSE 50% SYRINGE 50 ML IV PRN (01:26)
[2023-12-08 06:35] LABS: BASOPHILS % 0.1 % (0.0-1.0); EOSINOPHILS # (AUTO) 0.5 (0.0-0.4); EOSINOPHILS % 4.7 % (0.0-6.0); HEMATOCRIT 27.5 % (34.2-44.1); HEMOGLOBIN 8.7 g/dL (12.0-16.0); LYMPHOCYTES # (AUTO) 0.4 (1.0-3.2); LYMPHOCYTES % 3.9 % (18.0-39.1); MEAN CORPUSCULAR HEMOGLOBIN 30.6 pg (28-32); MEAN CORPUSCULAR HGB CONC 31.6 g/dL (31-35); MEAN CORPUSCULAR VOLUME 96.8 fL (81-99); MONOCYTES # (AUTO) 0.2 (0.2-0.8); MONOCYTES % 2.2 % (4.4-11.3); NEUTROPHILS # (AUTO) 8.9 (2.1-6.9); NEUTROPHILS % 88.6 % (38.7-80.0); PLATELET COUNT 304 x10e3/uL (140-360); RED BLOOD COUNT 2.84 x10e6/uL (3.6-5.1); RED CELL DISTRIBUTION WIDTH 14.4 % (11.7-14.4); WHITE BLOOD COUNT 10.01 x10e3/uL (4.8-10.8)
[2023-12-08 07:00] LABS: ALBUMIN 2.6 g/dL (3.5-5.0); ALBUMIN/GLOBULIN RATIO 0.7 (0.8-2.0); ANION GAP 22.4 mmol/L (8-16); BILIRUBIN,TOTAL 0.5 mg/dL (0.2-1.2); CREATININE, SERUM 3.61 mg/dL (0.57-1.11); TOTAL PROTEIN 6.3 g/dL (6.5-8.1)
[2023-12-08 07:09] LABS: POTASSIUM 3.4 mmol/L (3.5-5.1)
[2023-12-08 07:10] LABS: CALCIUM 5.7 mg/dL (8.4-10.2)
[2023-12-08 07:25] LABS: FERRITIN 424.45 ng/mL (4.63-204.00)
[2023-12-08] MEDS ORDERED: CALCIUM GLUC 1 G/50 ML NACL 50 ML IV ONE (07:45)
[2023-12-08] MEDS: CEFTRIAXONE 2 GM in SODIUM CHLORIDE 0.9% 100 ML IV SCH (08:24)
[2023-12-08] MEDS: CALCIUM CARBONATE 500 MG CHEWABLE TABS PO SCH (08:25)
[2023-12-08] MEDS: FERROUS SULFATE 325 MG TAB PO SCH (08:25)
[2023-12-08] MEDS: CYANOCOBALAMIN 1,000 MCG TAB PO SCH (08:26)
[2023-12-08] MEDS: CALCIUM GLUC 1 G/50 ML NACL 100 ML IV ONE (08:29)
[2023-12-08] MEDS: POTASSIUM CHLORIDE 20MEQ/100ML 100 ML IV ONE (08:30)
[2023-12-08] MEDS: CALCIUM GLUC 1 G/50 ML NACL 50 ML IV ONE ×2 (16:16→17:52)
[2023-12-08] MEDS: CARVEDILOL 12.5 MG TAB PO SCH (16:18)
[2023-12-08 16:50] LABS: CALCIUM IONIZED 0.6 mmol/L (1.09-1.30)
[2023-12-08 17:20] LABS: ANION GAP 22.8 mmol/L (8-16); CREATININE, SERUM 3.56 mg/dL (0.57-1.11); POTASSIUM 3.8 mmol/L (3.5-5.1)
[2023-12-08 17:24] LABS: CALCIUM 5.5 mg/dL (8.4-10.2)
[2023-12-08 17:46] LABS: MAGNESIUM 1.5 MG/DL (1.3-2.1)
[2023-12-08] MEDS: MAGNESIUM SULFATE 2GM/50ML 50 ML IV ONE (18:23)
[2023-12-08] MEDS: CALCIUM GLUCONATE 10% INJ 9.3 MEQ in SODIUM CHLORIDE 0.9% 250ML 250 ML IV SCH (19:31)
[2023-12-08] MEDS: OYST-CAL-D 500MG TABLET PO SCH (21:11)
[2023-12-09] VITALS (31 sets, daily range): BP systolic 113–166; BP diastolic 53–112; PULSE 70–99; RESP 11–22; TEMP 98–98.4; O2SAT 91–100
[2023-12-09 06:49] LABS: ANION GAP 21.6 mmol/L (8-16); CREATININE, SERUM 3.57 mg/dL (0.57-1.11); POTASSIUM 3.6 mmol/L (3.5-5.1)
[2023-12-09 07:00] LABS: CALCIUM 6.7 mg/dL (8.4-10.2)
[2023-12-09 07:32] LABS: CALCIUM IONIZED 0.8 mmol/L (1.09-1.30)
[2023-12-09] MEDS: ASPIRIN 81 MG ENTERIC COATED PO SCH (08:18)
[2023-12-09] MEDS ORDERED: CALCITRIOL 0.5 MCG CAP PO SCH (09:00)
[2023-12-09] MEDS: CALCIUM GLUCONATE IV SCH (09:42)
[2023-12-09] MEDS: SODIUM CHLORIDE 0.9% IV SCH (09:42)
[2023-12-09] MEDS: CALCITRIOL 0.25 MCG CAP PO SCH (11:17)
[2023-12-09] MEDS: ACETAMINOPHEN 325 MG TAB PO PRN (12:46)
[2023-12-09] MEDS: CALCIUM CARBONATE 500 MG CHEWABLE TABS PO SCH (16:35)
[2023-12-09] MEDS: CARVEDILOL 12.5 MG TAB PO SCH (16:35)
[2023-12-10] VITALS (27 sets, daily range): BP systolic 105–169; BP diastolic 46–108; PULSE 72–92; RESP 4–24; TEMP 97.6–98.2; O2SAT 93–100
[2023-12-10 07:14] LABS: ANION GAP 18.2 mmol/L (8-16); CREATININE, SERUM 3.65 mg/dL (0.57-1.11)
[2023-12-10 07:16] LABS: POTASSIUM 3.2 mmol/L (3.5-5.1)
[2023-12-10 07:48] LABS: CALCIUM IONIZED 1.2 mmol/L (1.09-1.30)
[2023-12-10] MEDS: DOCUSATE SODIUM 100 MG CAP PO PRN (08:52)
[2023-12-10] MEDS ORDERED: SODIUM CHLORIDE 0.9% IV SCH (09:30)
[2023-12-10] MEDS ORDERED: CALCIUM GLUCONATE IV SCH (09:30)
[2023-12-10] MEDS: POTASSIUM CHLORIDE 20MEQ/100ML 100 ML IV SCH (11:05)
[2023-12-10] MEDS: CALCIUM GLUCONATE 10% INJ 9.3 MEQ in SODIUM CHLORIDE 0.9% 250ML 250 ML IV SCH (11:05)
[2023-12-10] MEDS: BUMETANIDE INJ 0.25MG/ML 4ML VIAL IV SCH (14:00)
[2023-12-10] MEDS: SODIUM BICARBONATE 650 MG TAB PO SCH (15:12)
[2023-12-11] VITALS (23 sets, daily range): BP systolic 98–194; BP diastolic 33–74; PULSE 67–94; RESP 0–18; TEMP 97.2–98.5; O2SAT 94–100
[2023-12-11 06:58] LABS: ALBUMIN 2.5 g/dL (3.5-5.0); ALBUMIN/GLOBULIN RATIO 0.7 (0.8-2.0); ANION GAP 18.7 mmol/L (8-16); BILIRUBIN,TOTAL 0.2 mg/dL (0.2-1.2); CALCIUM 10.5 mg/dL (8.4-10.2); CREATININE, SERUM 3.67 mg/dL (0.57-1.11); POTASSIUM 3.7 mmol/L (3.5-5.1); TOTAL PROTEIN 5.9 g/dL (6.5-8.1)
[2023-12-11 10:11] LABS: CREATININE,URINE RANDOM 40.98 mg/dL (47-110)
[2023-12-11] MEDS: METOLAZONE 5 MG TAB PO ONE (13:07)
[2023-12-11 13:17] LABS: HEPATITIS B CORE AB TOTAL NEGATIVE; HEPATITIS B SURFACE AG (P) NEGATIVE
[2023-12-11] MEDS ORDERED: DEXTROSE 50% SYRINGE 50 ML IV PRN (16:00)
[2023-12-11] MEDS: INSULIN LISPRO 100 UNIT/1 ML 3ML VIAL SQ SCH (16:36)
[2023-12-12] VITALS (25 sets, daily range): BP systolic 118–181; BP diastolic 28–127; PULSE 67–86; RESP 3–24; TEMP 97.6–98.6; O2SAT 94–100
[2023-12-12 07:45] LABS: BASOPHILS % 0.2 % (0.0-1.0); EOSINOPHILS # (AUTO) 0.9 (0.0-0.4); EOSINOPHILS % 8.3 % (0.0-6.0); HEMATOCRIT 26.5 % (34.2-44.1); HEMOGLOBIN 8.6 g/dL (12.0-16.0); LYMPHOCYTES % 19.4 % (18.0-39.1); MEAN CORPUSCULAR HEMOGLOBIN 31.2 pg (28-32); MEAN CORPUSCULAR HGB CONC 32.5 g/dL (31-35); MONOCYTES # (AUTO) 0.5 (0.2-0.8); NEUTROPHILS # (AUTO) 6.7 (2.1-6.9); PLATELET COUNT 296 x10e3/uL (140-360); RED BLOOD COUNT 2.76 x10e6/uL (3.6-5.1); RED CELL DISTRIBUTION WIDTH 13.8 % (11.7-14.4); WHITE BLOOD COUNT 10.34 x10e3/uL (4.8-10.8)
[2023-12-12 07:54] LABS: ANION GAP 19.8 mmol/L (8-16); CALCIUM 10.4 mg/dL (8.4-10.2); CREATININE, SERUM 3.84 mg/dL (0.57-1.11); POTASSIUM 3.8 mmol/L (3.5-5.1)
[2023-12-12 10:04] LABS: EOSINOPHILS % (MANUAL) 9 % (0-7); LYMPHOCYTES % (MANUAL) 13 % (19-48); MONOCYTES % (MANUAL) 7 % (3.4-9.0); NEUTROPHILS % (MANUAL) 71 % (40-74)
[2023-12-12 10:08] LABS: PLATELET ESTIMATE ADEQUATE; PLATELET MORPHOLOGY COMMENT NORMAL; RBC MORPHOLOGY COMMENT NORMAL
[2023-12-12] MEDS: VANCOMYCIN 250MG/5ML ORAL SOLN PO SCH (15:06)
[2023-12-12] MEDS: CARVEDILOL 12.5 MG TAB PO SCH (17:05)
[2023-12-12] MEDS: BUMETANIDE 1 MG TAB PO SCH (17:05)
[2023-12-12] MEDS: HEPARIN SOD (PORCINE) 5,000 UNIT/ML VIAL SC SCH (20:13)
[2023-12-13] VITALS (20 sets, daily range): BP systolic 93–155; BP diastolic 31–91; PULSE 68–87; RESP 4–24; TEMP 97.5–98.6; O2SAT 90–100
[2023-12-13] MEDS: INSULIN GLARGINE 100 UNITS/ML VIAL SQ SCH (09:51)
[2023-12-13] MEDS: BUMETANIDE 1 MG TAB PO SCH (11:30)
[2023-12-14] VITALS (10 sets, daily range): BP systolic 131–161; BP diastolic 49–91; PULSE 68–124; RESP 14–18; TEMP 97.6–98; O2SAT 92–100
[2023-12-14] MEDS: METOPROLOL TARTRATE INJ 1 MG/ML VIAL IV ONE (03:59)
[2023-12-14 06:36] LABS: ALBUMIN 2.4 g/dL (3.5-5.0); ALBUMIN/GLOBULIN RATIO 0.8 (0.8-2.0); ANION GAP 18.4 mmol/L (8-16); BILIRUBIN,TOTAL 0.2 mg/dL (0.2-1.2); CALCIUM 7.8 mg/dL (8.4-10.2); CREATININE, SERUM 4.28 mg/dL (0.57-1.11); TOTAL PROTEIN 5.5 g/dL (6.5-8.1)
[2023-12-14 06:37] LABS: POTASSIUM 3.4 mmol/L (3.5-5.1)
[2023-12-14] MEDS ORDERED: BUMETANIDE 1 MG TAB PO SCH (09:00)
[2023-12-14] MEDS ORDERED: VANCOCIN HCL250 MG PO (11:25)
[2023-12-14] MEDS ORDERED: SODIUM BICARBO650 MG PO (11:25)
[2023-12-14] MEDS ORDERED: NEPHRO-VITE TABL1 EA PO (11:25)
[2023-12-14] MEDS ORDERED: COREG12.5 MG PO (11:25)
[2023-12-14] MEDS: POTASSIUM CHLORIDE 20 MEQ TAB CR PO ONE (12:05)
[2023-12-14] MEDS ORDERED: LASIX20 MG PO (13:00)
[2023-12-14] MEDS ORDERED: GEMFIBROZIL 600 MG TAB PO SCH (16:30)
[2023-12-14] MEDS ORDERED: HYDRALAZINE HCL 10 MG TAB PO PRN (16:45)
[2023-12-14] MEDS ORDERED: CHOLESTYRAMINE 4 GM PACKET PO SCH (22:00)
[2023-12-14] MEDS ORDERED: HYDRALAZINE HCL 10 MG TAB PO SCH (22:00)
[2023-12-15] MEDS ORDERED: PANTOPRAZOLE SOD 40 MG TABEC PO SCH (07:30)
[2023-12-15] MEDS ORDERED: FUROSEMIDE 20 MG TAB PO SCH (09:00)
[2023-12-15] MEDS ORDERED: ASPIRIN 325 MG TAB EC PO SCH (09:00)
== END 2023-12-14 16:45 | DRG 871 ==
LOC: ER 18:31 → ERHOLD 20:05 → MED/SURG3 21:45 → ICU 12-06 01:38 → OBSVTOIN 12-06 08:39
PROVIDERS: ADMIT Internal Medicine; ATTEND Internal Medicine
PROC: 4A043R1 Measurement of Venous Saturation, Peripheral, Percutaneous Approach (ICD-10-PCS; principal; 2023-12-06)
PROC: 5A09357 Assistance with Respiratory Ventilation, Less than 24 Consecutive Hours, Continuous Positive Airway Pressure (ICD-10-PCS; 2023-12-06)
PROC: 05HM33Z Insertion of Infusion Device into Right Internal Jugular Vein, Percutaneous Approach (ICD-10-PCS; 2023-12-09)
DX: A41.9 Sepsis, unspecified organism (principal); E11.10 Type 2 diabetes mellitus with ketoacidosis without coma; J18.9 Pneumonia, unspecified organism; J96.01 Acute respiratory failure with hypoxia; G93.41 Metabolic encephalopathy; I50.23 Acute on chronic systolic (congestive) heart failure; I13.0 Hypertensive heart and chronic kidney disease with heart failure and stage 1 through stage 4 chronic kidney disease, or unspecified chronic kidney disease; N39.0 Urinary tract infection, site not specified; G91.1 Obstructive hydrocephalus; N17.9 Acute kidney failure, unspecified; E87.3 Alkalosis; E11.42 Type 2 diabetes mellitus with diabetic polyneuropathy; R65.20 Severe sepsis without septic shock; N18.32 Chronic kidney disease, stage 3b; E11.22 Type 2 diabetes mellitus with diabetic chronic kidney disease; E83.51 Hypocalcemia; E11.51 Type 2 diabetes mellitus with diabetic peripheral angiopathy without gangrene; Z71.3 Dietary counseling and surveillance; Z68.33 Body mass index [BMI] 33.0-33.9, adult; R55 Syncope and collapse; I65.23 Occlusion and stenosis of bilateral carotid arteries; E66.9 Obesity, unspecified; E87.6 Hypokalemia; R19.7 Diarrhea, unspecified; I48.0 Paroxysmal atrial fibrillation; R53.81 Other malaise; K21.9 Gastro-esophageal reflux disease without esophagitis; I34.0 Nonrheumatic mitral (valve) insufficiency; E78.00 Pure hypercholesterolemia, unspecified; Z98.2 Presence of cerebrospinal fluid drainage device; Z86.73 Personal history of transient ischemic attack (TIA), and cerebral infarction without residual deficits; Z11.52 Encounter for screening for COVID-19; Z79.899 Other long term (current) drug therapy; Z79.82 Long term (current) use of aspirin; Z79.02 Long term (current) use of antithrombotics/antiplatelets
CPT/HCPCS: 36415; 36600; 70450; 71045; 71250; 74176; 76770; 80048; 80053; 81001; 82140; 82550; 82575; 82607; 82728; 82805; 82948; 83036; 83540; 83605; 83735; 83880; 83970; 84100; 84439; 84443; 84466; 84484; 84550; 85025; 85610; 85730; 86704; 86705; 86706; 87040; 87086; 87340; 87400; 87449; 92523; 93005; 93306; 93971; 94640; 94660; 94799; 96372; 99252; 99284; G0378; J0360; J0612; J0692; J0696; J1644; J1815; J1940; J3475; J3480; J7040; J7050; J7070; J7799; U0002

== ENCOUNTER 2024-06-10 09:06 | Inpatient (IN) | payer MEDICARE ==
[~2024-06-10] VITALS: Ht 152.4 cm; Wt 80.8 kg
[~2024-06-10 09:06] MED LIST changes: +COREG12.5 MG PO; +FEROSUL325 MG PO; +FUROSEMIDE40 MG PO; +LASIX20 MG PO; +NEPHRO-VITE TABL1 EA PO; +SODIUM BICARBO650 MG PO; +VANCOCIN HCL250 MG PO
[2024-06-10 09:14] VITALS: TEMP 97.7
[2024-06-10] MEDS: SODIUM CHLORIDE 0.9% 500ML 500 ML IV ONE ×2 (09:55→12:26)
[2024-06-10 09:56] LABS: BASOPHILS % 0.3 % (0.0-1.0); EOSINOPHILS # (AUTO) 0.3 (0.0-0.4); EOSINOPHILS % 2.5 % (0.0-6.0); HEMATOCRIT 34.3 % (34.2-44.1); HEMOGLOBIN 11.2 g/dL (12.0-16.0); LYMPHOCYTES # (AUTO) 2.9 (1.0-3.2); LYMPHOCYTES % 21.8 % (18.0-39.1); MEAN CORPUSCULAR HGB CONC 32.7 g/dL (31-35); MONOCYTES # (AUTO) 1.2 (0.2-0.8); MONOCYTES % 9.4 % (4.4-11.3); NEUTROPHILS # (AUTO) 8.5 (2.1-6.9); NEUTROPHILS % 65.2 % (38.7-80.0); PLATELET COUNT 243 x10e3/uL (140-360); RED BLOOD COUNT 3.61 x10e6/uL (3.6-5.1); RED CELL DISTRIBUTION WIDTH 13.7 % (11.7-14.4); WHITE BLOOD COUNT 13.09 x10e3/uL (4.8-10.8)
[2024-06-10 10:06] LABS: CLARITY,URINE SL CLOUDY (CLEAR); COLOR,URINE YELLOW (YELLOW); GLUCOSE, URINE NEGATIVE (NEGATIVE); KETONES,URINE NEGATIVE (NEGATIVE); LEUKOCYTE ESTERASE ,URINE SMALL (NEGATIVE); NITRITE,URINE NEGATIVE (NEGATIVE); PH,URINE 7.5 (5 - 7); PROTEIN,URINE DIPSTICK >=300 (NEGATIVE)
[2024-06-10 10:07] LABS: BILIRUBIN,URINE NEGATIVE (NEGATIVE); URINE UROBILINOGEN 0.2 mg/dL (0.2 - 1)
[2024-06-10 10:15] LABS: BACTERIA,URINE MANY /HPF; EPITHELIAL CELLS,URINE MODERATE /LPF; RBC,URINE 21-50 /HPF (0-5); WBC,URINE (MAN) >50 /HPF (0-5)
[2024-06-10 11:23] LABS: INR 0.93; PARTIAL THROMBOPLASTIN TIME 23.8 seconds (23.8-35.5); PROTHROMBIN TIME 12.9 seconds (11.9-14.5)
[2024-06-10 11:33] LABS: ALBUMIN 3.5 g/dL (3.5-5.0); ANION GAP 20.3 mmol/L (8-16); BILIRUBIN,TOTAL 0.3 mg/dL (0.2-1.2); CREATININE, SERUM 9.01 mg/dL (0.57-1.11)
[2024-06-10 11:41] LABS: POTASSIUM 3.3 mmol/L (3.5-5.1)
[2024-06-10 11:42] LABS: CALCIUM 15.7 mg/dL (8.4-10.2)
[2024-06-10 11:47] VITALS: PULSE 86; RESP 18
[2024-06-10 11:53] LABS: THYROID STIMULATING HORMONE 1.662 uIU/mL (0.350-4.940); TROPONIN I 0.201 ng/mL (0-0.300)
[2024-06-10] MEDS: Vancomycin IV 1 GM in SODIUM CHLORIDE 0.9% 250ML 250 ML IV ONE (11:54)
[2024-06-10 13:30] VITALS: BP 216/77; PULSE 88; RESP 18; TEMP 97.9; O2SAT 100
[2024-06-10] MEDS: ONDANSETRON HCL INJ 2MG/ML 2ML 2 MG/ML VIAL IV PRN (14:48)
[2024-06-10] MEDS: HYDRALAZINE HCL 20 MG/ML VIAL IV PRN (14:48)
[2024-06-10] MEDS: CLONIDINE HCL 0.2 MG TAB PO SCH (14:49)
[2024-06-10] MEDS ORDERED: DEXTROSE 50% SYRINGE 50 ML IV PRN (17:00)
[2024-06-10] MEDS ORDERED: GUAIFENESIN/DEXTROMETHORPHAN LIQD 5 ML UDC PO PRN (17:00)
[2024-06-10] MEDS ORDERED: IPRATROPIUM BROMIDE 0.02% 2.5 ML NEB NEB PRN (17:00)
[2024-06-10] MEDS ORDERED: MANNITOL 25% 12.5GM/50 ML VIAL IV PRN (17:45)
[2024-06-10] MEDS ORDERED: SODIUM CHLORIDE 0.9% 1000ML 2,000 ML IV PRN (17:45)
[2024-06-10] MEDS: CARVEDILOL 12.5 MG TAB PO SCH (19:15)
[2024-06-10] MEDS: GEMFIBROZIL 600 MG TAB PO SCH (19:30)
[2024-06-10 19:48] LABS: TROPONIN I 0.356 ng/mL (0-0.300)
[2024-06-10 20:02] VITALS: BP 134/70; PULSE 100; RESP 20; TEMP 97.9
[2024-06-10] MEDS ORDERED: OZEMPIC1 MG/0.71 SC (20:47)
[2024-06-10] MEDS ORDERED: CALCITRIOL0.25 MCG PO (20:47)
[2024-06-10] MEDS ORDERED: NIFEDIPINE ER30 M1 PO (20:47)
[2024-06-10] MEDS ORDERED: RENVELA800 MG PO (20:47)
[2024-06-10] MEDS ORDERED: CLONIDINE HCL0.1 MG PO (20:47)
[2024-06-10] MEDS ORDERED: NOVOLOG100 UNIT/1 SC (20:48)
[2024-06-10] MEDS: INSULIN REGULAR, HUMAN 100 UNIT/1 ML SQ SCH (21:00)
[2024-06-10] MEDS: ATORVASTATIN 40 MG TAB PO SCH (21:00)
[2024-06-10] MEDS: CHOLESTYRAMINE 4 GM PACKET PO SCH (21:00)
[2024-06-10 21:30] VITALS: BP 134/70; PULSE 100; RESP 20; TEMP 97.9; O2SAT 100
[2024-06-11] VITALS (8 sets, daily range): BP systolic 124–155; BP diastolic 45–102; PULSE 62–84; RESP 17–20; TEMP 97.5–98.4; O2SAT 95–100
[2024-06-11] MEDS: MELATONIN 3 MG TAB PO PRN (02:48)
[2024-06-11 06:23] LABS: BASOPHILS % 0.2 % (0.0-1.0); EOSINOPHILS # (AUTO) 0.5 (0.0-0.4); EOSINOPHILS % 3.7 % (0.0-6.0); HEMATOCRIT 34.6 % (34.2-44.1); HEMOGLOBIN 11.1 g/dL (12.0-16.0); LYMPHOCYTES % 7.8 % (18.0-39.1); MEAN CORPUSCULAR HEMOGLOBIN 31.3 pg (28-32); MEAN CORPUSCULAR HGB CONC 32.1 g/dL (31-35); MEAN CORPUSCULAR VOLUME 97.5 fL (81-99); MONOCYTES # (AUTO) 0.5 (0.2-0.8); MONOCYTES % 3.7 % (4.4-11.3); NEUTROPHILS # (AUTO) 11.1 (2.1-6.9); NEUTROPHILS % 83.8 % (38.7-80.0); PLATELET COUNT 205 x10e3/uL (140-360); RED BLOOD COUNT 3.55 x10e6/uL (3.6-5.1); RED CELL DISTRIBUTION WIDTH 13.7 % (11.7-14.4); WHITE BLOOD COUNT 13.18 x10e3/uL (4.8-10.8)
[2024-06-11 06:38] LABS: ALBUMIN 2.9 g/dL (3.5-5.0); ALBUMIN/GLOBULIN RATIO 0.9 (0.8-2.0); ANION GAP 16.8 mmol/L (8-16); BILIRUBIN,TOTAL 0.3 mg/dL (0.2-1.2); CALCIUM 12.5 mg/dL (8.4-10.2); CREATININE, SERUM 6.76 mg/dL (0.57-1.11); POTASSIUM 3.8 mmol/L (3.5-5.1); TOTAL PROTEIN 6.2 g/dL (6.5-8.1)
[2024-06-11 07:14] LABS: TROPONIN I 0.436 ng/mL (0-0.300)
[2024-06-11] MEDS ORDERED: CEFTRIAXONE 2 GM in SODIUM CHLORIDE 0.9% 100 ML IV SCH (09:00)
[2024-06-11 13:26] LABS: CALCIUM 14.9 mg/dL (8.7-10.3)
[2024-06-11] MEDS: PANTOPRAZOLE SOD 40 MG TABEC PO SCH (13:50)
[2024-06-11] MEDS: FOLIC ACID/CYANOCOB/PYRIDOXINE TAB PO SCH (13:50)
[2024-06-11] MEDS: ASPIRIN 325 MG TAB PO SCH (13:50)
[2024-06-11] MEDS: CLOPIDOGREL BISULFATE 75 MG TAB PO SCH (13:51)
[2024-06-11] MEDS: SODIUM BICARBONATE 650 MG TAB PO SCH (13:57)
[2024-06-11] MEDS: CINACALCET 30 MG TAB PO SCH (17:35)
[2024-06-11 17:39] LABS: HEPATITIS B SURFACE AG (P) Negative
[2024-06-12] VITALS (8 sets, daily range): BP systolic 118–132; BP diastolic 48–64; PULSE 58–82; RESP 17–20; TEMP 97.3–97.6; O2SAT 100
[2024-06-12 10:33] LABS: CALCIUM 10.1 mg/dL (8.4-10.2); CREATININE, SERUM 5.62 mg/dL (0.57-1.11)
[2024-06-13] VITALS (9 sets, daily range): BP systolic 120–152; BP diastolic 44–56; PULSE 56–85; RESP 17–20; TEMP 97.3–98; O2SAT 98–100
[2024-06-13 07:49] LABS: BASOPHILS % 0.1 % (0.0-1.0); EOSINOPHILS # (AUTO) 0.6 (0.0-0.4); EOSINOPHILS % 7.8 % (0.0-6.0); HEMATOCRIT 27.9 % (34.2-44.1); HEMOGLOBIN 8.8 g/dL (12.0-16.0); LYMPHOCYTES # (AUTO) 1.4 (1.0-3.2); LYMPHOCYTES % 18.1 % (18.0-39.1); MEAN CORPUSCULAR HEMOGLOBIN 30.7 pg (28-32); MEAN CORPUSCULAR HGB CONC 31.5 g/dL (31-35); MEAN CORPUSCULAR VOLUME 97.2 fL (81-99); MONOCYTES # (AUTO) 0.6 (0.2-0.8); MONOCYTES % 7.4 % (4.4-11.3); NEUTROPHILS # (AUTO) 4.9 (2.1-6.9); NEUTROPHILS % 65.4 % (38.7-80.0); PLATELET COUNT 154 x10e3/uL (140-360); RED BLOOD COUNT 2.87 x10e6/uL (3.6-5.1); RED CELL DISTRIBUTION WIDTH 13.6 % (11.7-14.4); WHITE BLOOD COUNT 7.46 x10e3/uL (4.8-10.8)
[2024-06-13] MEDS ORDERED: ONDANSETRON HCL 4 MG ORAL DISINTEGRATING TAB PO PRN (14:00)
[2024-06-13] MEDS: ACETAMINOPHEN 325 MG TAB PO PRN (16:22)
[2024-06-14] VITALS (9 sets, daily range): BP systolic 112–161; BP diastolic 52–100; PULSE 60–78; RESP 16–20; TEMP 97.4–98.2; O2SAT 95–100
[2024-06-14] MEDS: ALBUMIN 25% 12.5GM 50ML 50 ML IV ONE (19:53)
[2024-06-14] MEDS: MANNITOL 25% 12.5GM/50ML 100 ML ONE (19:53)
[2024-06-14] MEDS: SODIUM CHLORIDE 0.9% 1000ML 2,000 ML ONE (19:53)
[2024-06-15] VITALS (7 sets, daily range): BP systolic 145–173; BP diastolic 53–82; PULSE 58–74; RESP 16–21; TEMP 97.4–98.1; O2SAT 95–100
[2024-06-15 06:23] LABS: BASOPHILS % 0.1 % (0.0-1.0); EOSINOPHILS # (AUTO) 0.6 (0.0-0.4); EOSINOPHILS % 6.7 % (0.0-6.0); HEMATOCRIT 26.6 % (34.2-44.1); HEMOGLOBIN 8.4 g/dL (12.0-16.0); LYMPHOCYTES # (AUTO) 2.2 (1.0-3.2); LYMPHOCYTES % 26.3 % (18.0-39.1); MEAN CORPUSCULAR HEMOGLOBIN 30.4 pg (28-32); MEAN CORPUSCULAR HGB CONC 31.6 g/dL (31-35); MEAN CORPUSCULAR VOLUME 96.4 fL (81-99); MONOCYTES # (AUTO) 0.7 (0.2-0.8); MONOCYTES % 9.1 % (4.4-11.3); NEUTROPHILS # (AUTO) 4.4 (2.1-6.9); NEUTROPHILS % 54.1 % (38.7-80.0); PLATELET COUNT 175 x10e3/uL (140-360); RED BLOOD COUNT 2.76 x10e6/uL (3.6-5.1); RED CELL DISTRIBUTION WIDTH 13.2 % (11.7-14.4); WHITE BLOOD COUNT 8.16 x10e3/uL (4.8-10.8)
[2024-06-15] MEDS: DOCUSATE SODIUM 100 MG CAP PO PRN (08:50)
[2024-06-15 10:15] LABS: BASOPHILS % (MANUAL) 1 % (0-1.5); EOSINOPHILS % (MANUAL) 11 % (0-7); LYMPHOCYTES % (MANUAL) 21 % (19-48); MONOCYTES % (MANUAL) 2 % (3.4-9.0); NEUTROPHILS % (MANUAL) 65 % (40-74); PLATELET ESTIMATE ADEQUATE; PLATELET MORPHOLOGY COMMENT NORMAL; RBC MORPHOLOGY COMMENT NORMAL
[2024-06-16] VITALS (9 sets, daily range): BP systolic 132–194; BP diastolic 53–94; PULSE 64–75; RESP 16–20; TEMP 97.4–98.4; O2SAT 98–100
[2024-06-16] MEDS ORDERED: ALBUMIN 25% 12.5GM 0.25 GM/ML BTL IV PRN (09:00)
[2024-06-16 09:07] LABS: ANION GAP 18.4 mmol/L (8-16); CALCIUM 7.4 mg/dL (8.4-10.2); CREATININE, SERUM 4.91 mg/dL (0.57-1.11)
[2024-06-16 09:08] LABS: POTASSIUM 3.4 mmol/L (3.5-5.1)
[2024-06-16] MEDS: NIFEDIPINE CR 30 MG TAB PO ONE (14:26)
[2024-06-17] VITALS (10 sets, daily range): BP systolic 100–161; BP diastolic 48–69; PULSE 54–74; RESP 16–20; TEMP 97.1–97.6; O2SAT 96–100
[2024-06-17] MEDS: NIFEDIPINE CR 30 MG TAB PO SCH (08:11)
[2024-06-17] MEDS: PANTOPRAZOLE SOD 40 MG TABEC PO SCH (16:12)
[2024-06-18] VITALS (8 sets, daily range): BP systolic 121–164; BP diastolic 47–70; PULSE 64–74; RESP 17–21; TEMP 97.5–97.8; O2SAT 98–100
[2024-06-18 10:52] LABS: BASOPHILS % 0.1 % (0.0-1.0); EOSINOPHILS # (AUTO) 0.5 (0.0-0.4); EOSINOPHILS % 4.6 % (0.0-6.0); HEMATOCRIT 22.3 % (34.2-44.1); LYMPHOCYTES % 25.9 % (18.0-39.1); MEAN CORPUSCULAR HEMOGLOBIN 30.8 pg (28-32); MEAN CORPUSCULAR HGB CONC 32.7 g/dL (31-35); MEAN CORPUSCULAR VOLUME 94.1 fL (81-99); MONOCYTES # (AUTO) 0.9 (0.2-0.8); MONOCYTES % 7.7 % (4.4-11.3); NEUTROPHILS # (AUTO) 6.8 (2.1-6.9); NEUTROPHILS % 59.1 % (38.7-80.0); PLATELET COUNT 197 x10e3/uL (140-360); RED BLOOD COUNT 2.37 x10e6/uL (3.6-5.1); WHITE BLOOD COUNT 11.52 x10e3/uL (4.8-10.8)
[2024-06-18 10:54] LABS: HEMOGLOBIN 7.3 g/dL (12.0-16.0)
[2024-06-18 12:21] LABS: ANION GAP 15.2 mmol/L (8-16); CALCIUM 7.7 mg/dL (8.4-10.2); CREATININE, SERUM 2.59 mg/dL (0.57-1.11)
[2024-06-18 12:22] LABS: POTASSIUM 3.2 mmol/L (3.5-5.1)
[2024-06-18] MEDS: EPOETIN ALFA-EPBX 10,000 UNIT/ML VIAL SC SCH (17:29)
[2024-06-19] VITALS (8 sets, daily range): BP systolic 99–163; BP diastolic 46–69; PULSE 55–64; RESP 16–20; TEMP 97.4–98.5; O2SAT 99–100
[2024-06-19] MEDS ORDERED: CLONIDINE HCL0.2 MG PO (10:58)
[2024-06-19] MEDS ORDERED: CEPHALEXIN250 M1 PO (11:03)
== END 2024-06-19 18:40 | DRG 682 ==
LOC: ER 09:10 → ERHOLD 12:13 → MED/SURG3 13:20
PROVIDERS: ADMIT Internal Medicine Critical Care Medicine; ATTEND Internal Medicine Critical Care Medicine
PROC: 5A1D70Z Performance of Urinary Filtration, Intermittent, Less than 6 Hours Per Day (ICD-10-PCS; principal; 2024-06-10)
DX: I12.0 Hypertensive chronic kidney disease with stage 5 chronic kidney disease or end stage renal disease (principal); G92.8 Other toxic encephalopathy; N18.6 End stage renal disease; N39.0 Urinary tract infection, site not specified; N17.9 Acute kidney failure, unspecified; I16.1 Hypertensive emergency; E11.22 Type 2 diabetes mellitus with diabetic chronic kidney disease; Z76.82 Awaiting organ transplant status; E11.51 Type 2 diabetes mellitus with diabetic peripheral angiopathy without gangrene; D63.1 Anemia in chronic kidney disease; D50.0 Iron deficiency anemia secondary to blood loss (chronic); I65.23 Occlusion and stenosis of bilateral carotid arteries; E83.52 Hypercalcemia; I16.0 Hypertensive urgency; R53.81 Other malaise; E87.70 Fluid overload, unspecified; K21.9 Gastro-esophageal reflux disease without esophagitis; E66.9 Obesity, unspecified; Z68.33 Body mass index [BMI] 33.0-33.9, adult; Z11.52 Encounter for screening for COVID-19; I69.398 Other sequelae of cerebral infarction; H53.2 Diplopia; B95.5 Unspecified streptococcus as the cause of diseases classified elsewhere; Z79.4 Long term (current) use of insulin; Z79.02 Long term (current) use of antithrombotics/antiplatelets; Z79.82 Long term (current) use of aspirin; Z88.0 Allergy status to penicillin
CPT/HCPCS: 36415; 70450; 70551; 71045; 80048; 80053; 81001; 82310; 82550; 82948; 83735; 83880; 83970; 84443; 84484; 85025; 85610; 85730; 86705; 86706; 87086; 87340; 87400; 87420; 93005; 94799; 95819; 99252; 99284; J0360; J0696; J2150; J2405; J7030; J7040; J7050; U0002